=== PATIENT | male | born 1990 | race Caucasian/White ===

== ENCOUNTER 2019-10-27 13:30 | Emergency (ER) | payer MEDICAID, OTHER ==
--- NOTE | 2019-10-27 14:36 | XRAY Report ---
PROCEDURE: Foot 3 View LT INDICATIONS: Trauma TECHNIQUE: 3 views of the foot were acquired. COMPARISON: None FINDINGS: Bones: No fractures or dislocations. No suspicious bony lesions. Soft tissues: No tibiotalar joint effusion. Achilles tendon appears normal. IMPRESSION: No fracture. No osseous lesion. If there is continued clinical concern for pathology, then repeat martha in film radiographs (7-10 days) or advanced imaging (CT, MR, bone scan) should be considered for furt her evaluation. Reviewed by: Darleen Santos MD, PhD on 10/27/2019 2:35 PM PDT Approved by: Darleen Santos MD, PhD on 10/27/2019 2:35 PM PDT Station ID: [id number]
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
[2019-10-27 14:45] VITALS: BP 124/76
== END 2019-10-27 15:37 | disposition home or self-care (01) ==
LOC: ED 13:30
DX: S80.212A Abrasion, left knee, initial encounter (principal); S93.602A Unspecified sprain of left foot, initial encounter; V23.4XXA Motorcycle driver injured in collision with car, pick-up truck or van in traffic accident, initial encounter; Y93.I9 Activity, other involving external motion; Y92.410 Unspecified street and highway as the place of occurrence of the external cause
CPT/HCPCS: 99283; 99284

== ENCOUNTER 2020-06-27 17:45 | Emergency (ER) | payer MEDICAID ==
--- OUTSIDE RECORDS SUMMARY | 2020-06-27 17:49 | EXTERNAL MEDICAL SUMMARY RPT | Continuity of Care Document ---
:1990 Demographics Phone Unavailable Preferred Language Unknown Marital Status Unknown Yazidi Affiliation Unknown Race Unknown Ethnic Group Unknown Author Organization [place] Address [address] [place] [address] Phone Problems date description facility [id number] [employer] [facility] Social History date description facility [phone]
--- OUTSIDE RECORDS SUMMARY | 2020-06-27 18:00 | EXTERNAL MEDICAL SUMMARY RPT | Continuity of Care Document ---
:1990 Demographics Phone Unavailable Preferred Language Unknown Marital Status Unknown Mormon Affiliation Unknown Race Unknown Ethnic Group Unknown Author Organization [place] Address [address] [phone] Phone Problems date description facility [id number] [employer] [facility] Social History date description facility [phone]
[2020-06-27] MEDS ORDERED: TETANUS/DIPHTHERIA/PERTUSSIS 0.5 ML SYRINGE IM ONE ×2 (18:13→19:29)
[2020-06-27] MEDS ORDERED: BUFFERED LIDOCAINE 10 ML SYRINGE SUBQ STA (18:13)
[2020-06-27] MEDS ORDERED: ceFAZolin 1 GM VIAL IM STA (19:29)
--- NOTE | 2020-06-27 19:32 | ED Physician Documentation ---
History of Present Illness - Stated complaint Stated Complaint: LEFT FINGER LAC - Chief complaint Chief Complaint: Laceration - Additonal information Additional information: 29-year-old male presents emergency department for evaluation of a left small finger raisin washer injury. He is left-handed and accidentally hit his finger with the stream of water. He has a macerated lesion at the PIP joint on the palmar side of the finger. He does have some distal numbness and tingling medially. Unknown last tetanus. Patient has preserved flexion extension of this digit in all planes against resistance. Review of Systems Constitutional: reports: Reviewed and negative Eyes: reports: Loss of vision Nose: reports: Reviewed and negative Throat: reports: Reviewed and negative Cardiac: reports: Reviewed and negative Respiratory: reports: Reviewed and negative GI: reports: Reviewed and negative : reports: Dysuria Skin: reports: Lesions (left finger small) PD PAST MEDICAL HISTORY - Past Medical History Respiratory: Asthma - Past Surgical History Past Surgical History: No - Present Medications Home Medications: Ambulatory Orders Medication Instructions Recorded Confirmed HYDROcod/ACETAM 5/325 [[place] 5/325] 1 - 2 tablet PO Q6H PRN #14 tablet 06/27/20 cephALEXin [Keflex] 500 mg PO Q6H #28 06/27/20 - Allergies Allergies/Adverse Reactions: Allergies Allergy/AdvReac Type Severity Reaction Status Date / Time No Known Drug Allergies Allergy Verified 06/27/20 18:09 - Social History Does the pt smoke?: No Smoking Status: Never smoker Does the pt drink ETOH?: Yes Does the pt have substance abuse?: Yes - Immunizations Immunizations are current?: Yes - POLST Patient has POLST: No PD ED PE EXPANDED - Extremities Extremities: Left finger(s) (0.5 cm macerated wound palmar side small finger at PIP joint. Preserved flexion extension of the digit against resistance. radial side of digit does have some subjective tingling and loss of sensation distally.) Results - Vitals Vitals: Vital Signs - 24 hr 06/27/20 06/27/20 18:06 20:53 Temperature 36.8 C 36.4 C L Heart Rate 92 66 Respiratory 15 16 Rate Blood Pressure 136/82 H 125/68 O2 Saturation 99 100 Oxygen O2 Source Room air - Rads (name of study) left hand Radiology: Final report received (no acute findings) PD MEDICAL DECISION MAKING - ED course Complexity details: reviewed results, re-evaluated patient, d/w patient, d/w technical solutions consultant (Glenn Blanchard MD) ED course: 29-year-old male presents the emergency department for evaluation of a left small finger raisin washer injury sustained this afternoon. He has a macerated wound on the palmar side at the PIP joint. He does have some distal loss of sensation on the radial side of the small finger. X-ray does not show fractures however there is a small amount of air within the tissues. A photograph of the injury and the exam findings were discussed with Dr. Glenn rubio on-call orthopedic surgeon. He does not feel that we need to have the hand evaluated formally by hand surgery at [facility]. He does recommend antibiotics follow-up with orthopedics as well as elevation of the finger. Wound will be dressed with bacitracin and Neosporin. Tetanus was up dated today. Departure - Departure Disposition: 01 Home, Self Care Clinical Impression: Finger laceration Qualifiers: Encounter type: initial encounter Finger: little finger Damage to nail status: without damage Foreign body presence: without foreign body Laterality: left Qualified Code(s): S61.217A - Laceration without foreign body of left little finger without damage to nail, initial encounter Condition: Stable Record reviewed to determine appropriate education?: Yes Follow-Up: Glenn Blanchard MD [Provider Admit Priv/Credential] - Prescriptions: cephALEXin [Keflex] 500 mg PO Q6H #28 HYDROcod/ACETAM 5/325 [[place] 5/325] 1 - 2 tablet PO Q6H PRN #14 tablet PRN Reason: Pain Comments: Jhony you have a raisin washer injury to your left small finger. These injuries are at high risk for infection. Please fill the prescription for the cephalexin to begin taking tomorrow as directed. Please change the dressing on the finger as directed once a day. Gently wash with warm soap and water, then apply the Neosporin and Xeroform. Please keep your finger elevated over the next 24 to 48 hours. Is important that you follow-up with the orthopedics department. Please call tomorrow to arrange an appointment. If at any point you have redness extending into your palm, your finger gets cold or dusky. You have increased pain please return immediately to the emergency department for a second look. Discharge Date/Time: 06/27/20 21:03
[2020-06-27] MEDS ORDERED: BACITRACIN ZINC OINT 1 PACKET TOP STA (20:10)
[2020-06-27 20:54] VITALS: BP 125/68
--- NOTE | 2020-06-27 21:00 | XRAY Report ---
PROCEDURE: Hand 2 View LT INDICATIONS: mold washer injury to small finger TECHNIQUE: 2 views of the hand(s) acquired. COMPARISON: None FINDINGS: Bones: No fractures or dislocations. No suspicious bony lesions. Soft tissues: No suspicious soft tissue calcifications. IMPRESSION: No acute finding. Reviewed by: Cresencio Clements MD on 06/27/2020 8:59 PM PDT Approved by: Cresencio Clements MD on 06/27/2020 8:59 PM PDT Station ID: [id number]
== END 2020-06-27 21:03 | disposition home or self-care (01) ==
LOC: ED 17:45
DX: S61.217A Laceration without foreign body of left little finger without damage to nail, initial encounter (principal); T70.4XXA Effects of high-pressure fluids, initial encounter; W29.3XXA Contact with powered garden and outdoor hand tools and machinery, initial encounter; Y93.H9 Activity, other involving exterior property and land maintenance, building and construction; Z23 Encounter for immunization; R20.2 Paresthesia of skin
CPT/HCPCS: 90471; 96372; 99281; 99283